=== PATIENT | male | born 1950 | race Caucasian/White ===

== ENCOUNTER 2019-04-06 16:06 | Emergency (ER) | payer MEDICAID, OTHER ==
[~2019-04-06] VITALS: Ht 175.3 cm; Wt 72.6 kg
--- NOTE | 2019-04-06 16:42 | NUR ---
ERMD at bedside for MSE.
[2019-04-06] MEDS ORDERED: ONDANSETRON 4 MG/2 ML VIAL ONE (16:55)
[2019-04-06] MEDS: ONDANSETRON 4 MG/2 ML VIAL IV ONE (17:05)
--- NOTE | 2019-04-06 17:21 | NUR ---
Patient discharged to home in stable conditon. Written and verbal after care instructions given. Patient verbalizes understanding of instructions. Patient ambulated with stable gait.
[2019-04-06 17:31] VITALS: BP 135/72
== END 2019-04-06 17:21 | disposition home or self-care (01) ==
LOC: ER 16:06
DX: E10.649 Type 1 diabetes mellitus with hypoglycemia without coma (principal)
CPT/HCPCS: 96374; 99283; J2405; A4663